=== PATIENT | female | born 1990 | race Caucasian/White ===

== ENCOUNTER 2024-10-13 13:10 | Outpatient (AMB) | payer OTHER, SELFPAY ==
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
[2024-10-13 13:17] VITALS: BP 112/86; PULSE 70; RESP 12; TEMP 36.9; O2SAT 99; BMI 31.4
== END 2024-10-13 13:45 | disposition home or self-care (01) ==
LOC: HO.HMCFM 13:11
PROVIDERS: PCP Physician Assistant; Visit Provider Physician Assistant
DX: E55.9 Vitamin D deficiency, unspecified (principal); R53.83 Other fatigue; K13.70 Unspecified lesions of oral mucosa

== ENCOUNTER → 2024-10-13 13:10 | Outpatient (BNVA) | payer OTHER, SELFPAY | PROVIDERS: PCP Physician Assistant; Visit Provider Physician Assistant | DX: E55.9 Vitamin D deficiency, unspecified (principal); R53.83 Other fatigue; K13.70 Unspecified lesions of oral mucosa | CPT/HCPCS: 96127 ==